=== PATIENT | male | born 1935 | race Caucasian/White ===

== ENCOUNTER 2017-09-29 14:15 | Emergency (ER) | payer MEDICARE, MEDICAID ==
[~2017-09-29] VITALS: Ht 175.3 cm; Wt 68.0 kg
[~2017-09-29 14:15] MED LIST: AMIN30LI25 PO; ASCO500T9 PO; BLOO-140 IN; BUPR100T7 PO; CALC-261 PO; DOCU-275 PO; INSU100V3 SQ; LAMO25TA5 PO; MIRT30TA7 PO; MULT-24 PO; OLAN5TAB3 PO
--- NOTE | 2017-09-29 14:20 | NUR ---
URINARY RETENTION X 1 WEEK, NAD NOTED, VSS, RESP EVEN AND UNLABORED, WAITING FOR MD FLOYD.
[2017-09-29] MEDS: IV NS 0.9% 1,000 ML BAG IV ONE (15:00)
[2017-09-29] MEDS: LORAZEPAM INJ 2 MG/ML VIAL IV ONE ×2 (15:00→15:40)
[2017-09-29] MEDS ORDERED: TAMSULOSIN 0.4 MG CAP.SR.24H ONE (15:08)
[2017-09-29] MEDS ORDERED: ONDANSETRON HCL/PF 4 MG/2 ML VIAL ONE (15:08)
[2017-09-29] MEDS ORDERED: LORAZEPAM INJ 2 MG/ML VIAL ONE ×2 (15:09→15:42)
[2017-09-29 15:11] LABS: BASOPHILS # (AUTO) 0.2 /CMM (0.0-0.2); BASOPHILS % (AUTO) 1.7 % (0.0-2.0); EOSINOPHILS # (AUTO) 0.1 /CMM (0.0-0.7); EOSINOPHILS % (AUTO) 0.8 % (0.0-6.0); HEMATOCRIT 50 % (39-51); HEMOGLOBIN 16.8 g/dL (13.5-17.5); LYMPHOCYTES # (AUTO) 1.1 /CMM (0.8-4.8); LYMPHOCYTES % (AUTO) 12.1 % (20.0-44.0); MEAN CORPUSCULAR HEMOGLOBIN 32 PG (26.0-33.0); MEAN CORPUSCULAR HGB CONC 34 g/dl (31.0-36.0); MEAN CORPUSCULAR VOLUME 93 fL (80-96); MONOCYTES # (AUTO) 0.6 /CMM (0.1-1.30); MONOCYTES % (AUTO) 6.5 % (2.0-12.0); NEUTROPHILS # (AUTO) 7.2 /CMM (1.8-8.9); NEUTROPHILS % (AUTO) 78.9 % (43.0-81.0); PLATELET COUNT (AUTO) 238 /CMM (150-450); RDW COEFFICIENT OF VARIATION 13.7 (11.5-15.0); RED BLOOD CELL COUNT(AUTO) 5.32 MIL/uL (4.5-6.0); WHITE BLOOD COUNT (AUTO) 9.2 K/uL (4.3-11.0)
[2017-09-29] MEDS: TAMSULOSIN 0.4 MG CAP.SR.24H PO ONE (15:13)
[2017-09-29] MEDS: ONDANSETRON HCL/PF 4 MG/2 ML VIAL IVP ONE (15:13)
[2017-09-29 15:22] LABS: CALCIUM, SERUM 9.2 mg/dL (8.5-10.1); CARBON DIOXIDE 24 mmol/L (21-32); CHLORIDE 103 mmol/L (98-107); CREATININE 1.5 mg/dL (0.6-1.3); GLUCOSE 108 mg/dL (74-106); POTASSIUM 4.4 mmol/L (3.5-5.1); SODIUM SERUM 139 mmol/L (136-145); UREA NITROGEN, BLOOD 17 mg/dL (7-18)
[2017-09-29 15:24] LABS: INR 0.95 (0.85-1.15)
--- NOTE | 2017-09-29 15:25 | NUR ---
URINE SENT TO LAB
[2017-09-29 15:27] LABS: ALANINE AMINOTRANSFERASE 21 U/L (12-78); ALKALINE PHOSPHATASE 114 U/L (46-116); ASPARTATE AMINOTRANSFERASE 22 U/L (15-37); BILIRUBIN,DIRECT 0.3 mg/dL (0.0-0.2); BILIRUBIN,TOTAL 1.3 mg/dL (0.2-1.0); LIPASE 105 U/L (73-393); TOTAL PROTEIN, SERUM 7.8 g/dL (6.4-8.2)
[2017-09-29 15:28] LABS: APPEARANCE,URINE Clear (CLEAR); BILIRUBIN,URINE SMALL (NEGATIVE); BLOOD, URINE Negative Ery/uL (NEGATIVE); COLOR,URINE Yellow (YELLOW); KETONES,URINE 15 (NEGATIVE); LEUKOCYTE ESTERASE ,URINE Negative (NEGATIVE); NITRITE, URINE Negative (NEGATIVE); PROTEIN,URINE Trace mg/dl (NEGATIVE); UGLUCOSE Negative (NEGATIVE)
[2017-09-29 15:34] LABS: BACTERIA,URINE None seen /HPF (None Seen); MUCUS,URINE Few /LPF (None Seen); SQUAMOUS EPITHELIAL CELL,UR Few /HPF (None Seen)
[2017-09-29] MEDS ORDERED: IOHEXOL-300 100 ML VIAL IV ONE (15:45)
--- NOTE | 2017-09-29 15:49 | NUR ---
PT TO CTSCAN
[2017-09-29 17:53] VITALS: BP 112/80
--- NOTE | 2017-09-29 17:53 | NUR ---
Patient discharged to home in stable condition. Written and verbal after care instructions given. Patient verbalizes understanding of instruction. Prescriptions given.
--- NOTE | 2017-09-29 17:54 | NUR ---
Sonia hernandez in [facility] - 09/29/17 at 1754 by YEHUDA Patient discharged to home in stable condition. Written and verbal after care instructions given. Patient verbalizes understanding of instruction.
--- NOTE | 2017-09-29 17:54 | NUR ---
IV removed. Catheter intact and site benign. Pressure and 4x4 applied to site. No bleeding noted.
== END 2017-09-29 17:54 | disposition home or self-care (01) ==
LOC: ER 14:19
DX: N40.1 Benign prostatic hyperplasia with lower urinary tract symptoms (principal); R33.8 Other retention of urine
CPT/HCPCS: 36415; 80048-TC; 80076-TC; 81000-TC; 83690-TC; 84484-TC; 85025-TC; 85730-TC; 87086-TC; A4606; J2060; J2405; J7030; Q9967; Z7610

== ENCOUNTER 2018-07-22 19:45 | Emergency (ER) | payer MEDICARE, MEDICAID ==
[~2018-07-22] VITALS: Ht 175.3 cm; Wt 63.5 kg
--- NOTE | 2018-07-22 20:17 | NUR ---
PT BIBSELF COMPLAINING OF LOWER ABDOMINAL PAIN. PT STATES LAST BM WAS 6 DAYS AGO. PT ALSO STATES HE HAS BEEN UNABLE TO URINATE SINCE LAST NIGHT. PT DENIES N/V/D. PT IS AAOX4. RESPIRATIONS EVEN AND UNLABORED. SKIN WARM AND INTACT. NO ACUTE DISTRESS NOTED. PT ABLE TO AMBULATE, STEADY GAIT. WAITING MD EVALUATION.
[2018-07-22] MEDS ORDERED: LACTULOSE 10 G/15 ML UDC (PYXIS) ONE (20:41)
[2018-07-22] MEDS ORDERED: LIDOCAINE 2% JEL UROJET 10 ML MM ONE ×2 (20:41→21:00)
[2018-07-22] MEDS ORDERED: LACTULOSE 10 G/15 ML UDC (PYXIS) PO ONE (21:00)
[2018-07-22 21:27] LABS: APPEARANCE,URINE CLEAR (CLEAR); BILIRUBIN,URINE NEGATIVE (NEGATIVE); BLOOD, URINE NEGATIVE Ery/uL (NEGATIVE); COLOR,URINE YELLOW (YELLOW); KETONES,URINE TRACE (NEGATIVE); LEUKOCYTE ESTERASE ,URINE NEGATIVE (NEGATIVE); NITRITE, URINE NEGATIVE (NEGATIVE); PH,URINE 6.5 (5.0-8.0); PROTEIN,URINE NEGATIVE (NEGATIVE); UGLUCOSE NEGATIVE (NEGATIVE); UROBILINOGEN,URINE 0.2 EU/dL (0.2)
--- NOTE | 2018-07-22 21:55 | NUR ---
Patient discharged to home in stable condition. Written and verbal after care instructions given. Patient verbalizes understanding of instruction. Pt ambulatory with a steady gait. Pt discharged with abraham cath leg bag. Informed pt to follow up with PMD or urologist on Wednesday per MD advice
[2018-07-22 21:56] VITALS: BP 138/72
== END 2018-07-22 21:57 | disposition home or self-care (01) ==
LOC: ER 19:48
DX: K59.00 Constipation, unspecified (principal); R33.9 Retention of urine, unspecified; F41.9 Anxiety disorder, unspecified; F32.9 Major depressive disorder, single episode, unspecified; Z79.4 Long term (current) use of insulin
CPT/HCPCS: 51702; 81001; 99284; A4606; J3490; 81000-TC; Z7610

== ENCOUNTER 2018-07-25 14:18 | Emergency (ER) | payer MEDICARE, MEDICAID ==
[~2018-07-25] VITALS: Ht 175.3 cm; Wt 56.7 kg
[2018-07-25 14:18] VITALS: BP 118/57
--- NOTE | 2018-07-25 15:01 | NUR ---
initial contact with pt , no acute distress, family member at bedside
--- NOTE | 2018-07-25 15:05 | NUR ---
seen and eval by Dr siddiqi, abraham catheter d/nate as ordered, explained and procedure tolerated well
== END 2018-07-25 14:45 | disposition home or self-care (01) ==
LOC: ER 14:24
DX: Z46.6 Encounter for fitting and adjustment of urinary device (principal); R33.9 Retention of urine, unspecified; F32.9 Major depressive disorder, single episode, unspecified; F41.9 Anxiety disorder, unspecified; Z79.4 Long term (current) use of insulin
CPT/HCPCS: 99283; A4606; Z7610

== ENCOUNTER 2018-07-27 13:33 | Emergency (ER) | payer MEDICARE, MEDICAID ==
[~2018-07-27] VITALS: Ht 167.6 cm; Wt 58.5 kg
--- NOTE | 2018-07-27 13:49 | NUR ---
PT BIB FROM HOME C/O URINARY RETENSION, LAST URINE 1 DAY AGO +ABD DISTENTION, AAX04, RESPIRATIONS EVEN AND UNLABORED, NAD NOTED, VSS, AWAITING MD FLOYD
[2018-07-27 14:07] LABS: BASOPHILS % (AUTO) 0.4 % (0.0-2.0); EOSINOPHILS % (AUTO) 0.2 % (0.0-6.0); HEMATOCRIT 42 % (39-51); HEMOGLOBIN 14.1 g/dL (13.5-17.5); LYMPHOCYTES # (AUTO) 0.8 /CMM (0.8-4.8); LYMPHOCYTES % (AUTO) 8.7 % (20.0-44.0); MEAN CORPUSCULAR HGB CONC 34 g/dl (31.0-36.0); MEAN CORPUSCULAR VOLUME 97 fL (80-96); MONOCYTES # (AUTO) 0.6 /CMM (0.1-1.30); MONOCYTES % (AUTO) 6.7 % (2.0-12.0); NEUTROPHILS # (AUTO) 8.1 /CMM (1.8-8.9); PLATELET COUNT (AUTO) 249 /CMM (150-450); RED BLOOD CELL COUNT(AUTO) 4.34 MIL/uL (4.5-6.0); WHITE BLOOD COUNT (AUTO) 9.6 K/uL (4.3-11.0)
--- NOTE | 2018-07-27 14:13 | NUR ---
F/C INSERTED ORDERED, URINE COLLECTED AND SENT TO LAB
[2018-07-27 14:14] LABS: CALCIUM, SERUM 9.3 mg/dL (8.5-10.1); CARBON DIOXIDE 26 mmol/L (21-32); CHLORIDE 102 mmol/L (98-107); CREATININE 1.5 mg/dL (0.6-1.3); GLUCOSE 127 mg/dL (74-106); POTASSIUM 4.5 mmol/L (3.5-5.1); SODIUM SERUM 138 mmol/L (136-145); UREA NITROGEN, BLOOD 27 mg/dL (7-18)
[2018-07-27 14:26] LABS: APPEARANCE,URINE Slightly Cloudy (CLEAR); BILIRUBIN,URINE Negative (NEGATIVE); BLOOD, URINE Large Ery/uL (NEGATIVE); COLOR,URINE Dark Yellow (YELLOW); KETONES,URINE Trace (NEGATIVE); LEUKOCYTE ESTERASE ,URINE Negative (NEGATIVE); NITRITE, URINE Negative (NEGATIVE); PH,URINE 6.5 (5.0-8.0); PROTEIN,URINE Negative (NEGATIVE); UGLUCOSE Negative (NEGATIVE); UROBILINOGEN,URINE 0.2 EU/dL (0.2)
[2018-07-27 14:38] LABS: BACTERIA,URINE None seen /HPF (None Seen); RBC,URINE 80-100 /HPF (0-2); SQUAMOUS EPITHELIAL CELL,UR Few /HPF (None Seen)
[2018-07-27 14:50] VITALS: BP 109/82
--- NOTE | 2018-07-27 15:06 | NUR ---
PER DR NORRIS, TO CHANGE URINARY DRAINAGE BAG TO A LEG BAG.
--- NOTE | 2018-07-27 15:28 | NUR ---
Patient discharged to home in stable condition. Written and verbal after care instructions given. Patient verbalizes understanding of instruction. Pt d/c home with f/c with leg bag
== END 2018-07-27 15:30 | disposition home or self-care (01) ==
LOC: ER 13:36
DX: R33.9 Retention of urine, unspecified (principal); G89.29 Other chronic pain; K59.00 Constipation, unspecified; F32.9 Major depressive disorder, single episode, unspecified; F41.9 Anxiety disorder, unspecified; Z79.4 Long term (current) use of insulin
CPT/HCPCS: 36415; 80048-TC; 81000-TC; 85025-TC; 87086-TC; A4606; Z7610

== ENCOUNTER 2018-08-09 18:37 | Emergency (ER) | payer MEDICARE, MEDICAID ==
[~2018-08-09] VITALS: Ht 175.3 cm; Wt 56.7 kg
--- NOTE | 2018-08-09 18:44 | NUR ---
PT BIB CAREGIVER FROM HOME, C/O HEMATURIA AND PAIN ON AND OFF X 1 WEEK, F/C PLACED HERE LAST WEEK, PER PT HAS SEEN UROLOGIST LAST WEEK. PT AAOX4, RESPIRATIONS EVEN AND UNLABORED, NO SOB, NAD NOTED, VSS, PENDING ER PROVIDER EVAL
[2018-08-09] MEDS ORDERED: HYDROCODONE/APAP 5/325MG 1 EACH TABLET PO ONE (19:00)
[2018-08-09] MEDS ORDERED: LIDOCAINE 2% JEL UROJET 10 ML MM ONE ×2 (19:00→19:01)
[2018-08-09] MEDS ORDERED: HYDROCODONE/APAP 5/325MG 1 EACH TABLET ONE (19:01)
[2018-08-09 19:14] LABS: BASOPHILS # (AUTO) 0.1 /CMM (0.0-0.2); BASOPHILS % (AUTO) 0.6 % (0.0-2.0); EOSINOPHILS % (AUTO) 0.9 % (0.0-6.0); HEMATOCRIT 43 % (39-51); HEMOGLOBIN 14.3 g/dL (13.5-17.5); LYMPHOCYTES # (AUTO) 1.1 /CMM (0.8-4.8); LYMPHOCYTES % (AUTO) 9.4 % (20.0-44.0); MEAN CORPUSCULAR HGB CONC 33 g/dl (31.0-36.0); MEAN CORPUSCULAR VOLUME 97 fL (80-96); MONOCYTES # (AUTO) 0.9 /CMM (0.1-1.30); MONOCYTES % (AUTO) 7.7 % (2.0-12.0); NEUTROPHILS # (AUTO) 9.5 /CMM (1.8-8.9); NEUTROPHILS % (AUTO) 81.4 % (43.0-81.0); PLATELET COUNT (AUTO) 315 /CMM (150-450); RED BLOOD CELL COUNT(AUTO) 4.46 MIL/uL (4.5-6.0); WHITE BLOOD COUNT (AUTO) 11.7 K/uL (4.3-11.0)
[2018-08-09 19:24] LABS: CALCIUM, SERUM 8.7 mg/dL (8.5-10.1); CARBON DIOXIDE 30 mmol/L (21-32); CHLORIDE 104 mmol/L (98-107); CREATININE 1.2 mg/dL (0.6-1.3); GLUCOSE 97 mg/dL (74-106); POTASSIUM 4.6 mmol/L (3.5-5.1); SODIUM SERUM 140 mmol/L (136-145); UREA NITROGEN, BLOOD 22 mg/dL (7-18)
--- NOTE | 2018-08-09 20:18 | NUR ---
DASILVA CATH CHANGED, DRAINING BLOODY RED URINE AT THIS TIME, DENIES ANY PAIN OR DISCOMFORT.
[2018-08-09] MEDS ORDERED: IV NS 0.9% 1,000 ML BAG IV ONE (20:30)
--- NOTE | 2018-08-09 21:15 | NUR ---
URINE COLLECTED AND SENT TO LAB
[2018-08-09 21:32] LABS: APPEARANCE,URINE CLOUDY (CLEAR); BILIRUBIN,URINE NEGATIVE (NEGATIVE); BLOOD, URINE 3+ Ery/uL (NEGATIVE); COLOR,URINE RED (YELLOW); KETONES,URINE TRACE (NEGATIVE); LEUKOCYTE ESTERASE ,URINE 1+ (NEGATIVE); NITRITE, URINE NEGATIVE (NEGATIVE); PROTEIN,URINE 3+ mg/dl (NEGATIVE); UGLUCOSE NEGATIVE (NEGATIVE)
[2018-08-09 21:34] LABS: BACTERIA,URINE Rare /HPF (None Seen); RBC,URINE TOO NUMEROUS TO COUN /HPF (0-2); SQUAMOUS EPITHELIAL CELL,UR Rare /HPF (None Seen)
--- NOTE | 2018-08-09 21:55 | NUR ---
Patient discharged to home in stable condition. Written and verbal after care instructions given. Patient verbalizes understanding of instruction. IV removed. Catheter intact and site benign. Pressure and 4x4 applied to site. No bleeding noted.
[2018-08-09 21:56] VITALS: BP 122/60
== END 2018-08-09 21:57 | disposition home or self-care (01) ==
LOC: ER 18:45
DX: N40.1 Benign prostatic hyperplasia with lower urinary tract symptoms (principal); R33.8 Other retention of urine; R31.9 Hematuria, unspecified; E86.0 Dehydration; F32.9 Major depressive disorder, single episode, unspecified; F41.9 Anxiety disorder, unspecified; Z79.4 Long term (current) use of insulin
CPT/HCPCS: 36415; 80048-TC; 81000-TC; 85025-TC; 87086-TC; J3490; J7030

== ENCOUNTER 2019-09-01 14:03 | Inpatient (IN) | payer MEDICARE, OTHER ==
[~2019-09-01] VITALS: Ht 175.3 cm; Wt 54.4 kg
--- NOTE | 2019-09-01 14:25 | NUR ---
PT BROUGHT INTO EMERGENCY ROOM FOR MENTAL EVALUATION ACCORDING TO CHILD CAREGIVER PT TALKS TO SELF AND HAS NOT SLEPT. WILL CONTINUE TO MONITOR.
[2019-09-01 14:41] LABS: BASOPHILS # (AUTO) 0.1 /CMM (0.0-0.2); EOSINOPHILS % (AUTO) 1.3 % (0.0-6.0); HEMATOCRIT 42 % (39-51); HEMOGLOBIN 13.9 g/dL (13.5-17.5); LYMPHOCYTES # (AUTO) 1.3 /CMM (0.8-4.8); LYMPHOCYTES % (AUTO) 22.9 % (20.0-44.0); MEAN CORPUSCULAR HGB CONC 33 g/dl (31.0-36.0); MEAN CORPUSCULAR VOLUME 96 fL (80-96); MONOCYTES # (AUTO) 0.5 /CMM (0.1-1.30); MONOCYTES % (AUTO) 8.4 % (2.0-12.0); NEUTROPHILS # (AUTO) 3.7 /CMM (1.8-8.9); NEUTROPHILS % (AUTO) 66.4 % (43.0-81.0); PLATELET COUNT (AUTO) 234 /CMM (150-450); RED BLOOD CELL COUNT(AUTO) 4.37 MIL/uL (4.5-6.0); WHITE BLOOD COUNT (AUTO) 5.6 K/uL (4.3-11.0)
[2019-09-01 14:48] LABS: CALCIUM, SERUM 9.4 mg/dL (8.5-10.1); CARBON DIOXIDE 32 mmol/L (21-32); CHLORIDE 105 mmol/L (98-107); CREATININE 1.2 mg/dL (0.6-1.3); GLUCOSE 115 mg/dL (74-106); POTASSIUM 5.1 mmol/L (3.5-5.1); SODIUM SERUM 142 mmol/L (136-145); UREA NITROGEN, BLOOD 22 mg/dL (7-18)
[2019-09-01 14:54] LABS: ALANINE AMINOTRANSFERASE 21 U/L (12-78); ALBUMIN 3.5 g/dL (3.4-5.0); ALCOHOL, BLOOD < 3 mg/dL (0-0); ALKALINE PHOSPHATASE 82 U/L (46-116); ASPARTATE AMINOTRANSFERASE 19 U/L (15-37); BILIRUBIN,DIRECT 0.2 mg/dL (0.0-0.2); BILIRUBIN,TOTAL 0.8 mg/dL (0.2-1.0); TOTAL PROTEIN, SERUM 6.6 g/dL (6.4-8.2)
[2019-09-01 14:55] LABS: ACETAMINOPHEN < 2 ug/ml (10-30); SALICYLATE < 3.0 mg/dL (2.8-20.0)
--- NOTE | 2019-09-01 15:14 | NUR ---
metal washing machine operator art called for evaluation
--- NOTE | 2019-09-01 15:34 | NUR ---
CALLED FOR GPS BED
--- NOTE | 2019-09-01 15:39 | NUR ---
PET EVALUATION TEAM PRESENT
[2019-09-01] MEDS ORDERED: MIRT30TA PO (15:51)
[2019-09-01] MEDS ORDERED: OLAN2.5T3 PO (15:51)
--- NOTE | 2019-09-01 15:58 | NUR ---
LABS DONE URINE SENT FOR PROCESSING
[2019-09-01 16:15] LABS: APPEARANCE,URINE Clear (CLEAR); BILIRUBIN,URINE Negative (NEGATIVE); BLOOD, URINE Negative Ery/uL (NEGATIVE); COLOR,URINE Yellow (YELLOW); KETONES,URINE Negative (NEGATIVE); LEUKOCYTE ESTERASE ,URINE Negative (NEGATIVE); NITRITE, URINE Negative (NEGATIVE); PROTEIN,URINE Negative (NEGATIVE); UGLUCOSE Negative (NEGATIVE); UROBILINOGEN,URINE 0.2 EU/dL (0.2)
--- NOTE | 2019-09-01 16:39 | NUR ---
PT PLACED ON 5150 AFTER PET EVALUATION PENDING PLACEMENT IN GPS
--- NOTE | 2019-09-01 17:56 | NUR ---
RECIEVED BED 216
[2019-09-01 20:05] VITALS: BP 106/59
[2019-09-01 20:50] VITALS: BP 125/70
[2019-09-01] MEDS ORDERED: MAGNESIUM HYDROXIDE 30 ML UDC PO PRN (21:00)
[2019-09-01] MEDS ORDERED: ACETAMINOPHEN 325 MG TABLET PO PRN (21:00)
[2019-09-01] MEDS ORDERED: MAG HYDROX/AL HYDROX/SIMETH 30 ML UDC PO PRN (21:00)
[2019-09-01] MEDS ORDERED: ZOLPIDEM TARTRATE 5 MG TABLET PO PRN (21:00)
[2019-09-01] MEDS ORDERED: LORAZEPAM 0.5 MG TABLET PO PRN (21:00)
[2019-09-01] MEDS ORDERED: BLOOD SUGAR DIAGNOSTIC 1 EACH STRIP IN ONE (22:00)
[2019-09-01] MEDS ORDERED: TAMS-12 PO (22:16)
[2019-09-01] MEDS ORDERED: FINA5TAB11 PO (22:16)
--- NOTE | 2019-09-01 22:31 | NUR ---
RN NOTES : PT. REFUSED INTIALLY BLOOD SUGAR CHECK ,ENCOURAGED X 3 STILL REFUSED, EXPLINED RISKS AND BENEFITS STILL REFUSED,PT. STATED I AM NOT DIABETIC , I FEEL TIRED/ SLEEPING, WILL CONTINUITY WITH CARE.
--- NOTE | 2019-09-01 23:45 | NUR ---
ADMISSION NOTES: ADMITTED THIS 84Y/O MALE PATIENT ADMIT FROM [facility] ,ER / INTIALLY FROM HOME, ADMITTED TO GPS ON 5150 HOLD, PER HOLD GRAVELY DISABLE, DUE TO DEPRESSED NOT SLEEPING, NON COMPLIANT WITH CARE , NOT EATING AND TALKING TO HIMSELF ALL NIGHT FOR THE PAST TWO WEEKS, UPON FACE TO FACE ASSESSMENT PATIENT IS A&O X1,2 , DEPRESSED FLAT AFFECT, ,DISORGNIZED, UNCOOPERTIVE ,EASILY GETS AGITATED, DENIES SI /HI AT THIS TIME, PT. IS POOR HISTORIAN, POOR INSIGHT ,POOR JUDGEMENT , PT. REFUSED TO SIGNS ADMISSION CONSENT PAPERS , DUE TO MENTAL STATUS DEPRESSED, AND PT. REFUSED TO TAKING PICTURES FOR THE CHART, PT. REFUSED INTITAALY BLOOD SUGAR CHECK , ENCOURAGED, EXPLAINED RISKS AND BENEFITS STILL REFUSED, PER PT. I DONT WANTS CHECK , BOTH MD AWARE AND NOTIFIED OF THE ADMISSION, BELONGINGS CONTRABAND WERE DONE , PT. REFUSED FULL BODY SKIN ASSESSMENT AND PICTURES TO BE TAKEN, ENCOURAGED X3 EXPLINED RISKS AND BENEFITS , STILL REUSED, NURSING ASSESSMENT DONE ,PT. RIGHTS DISCUSS BY CAST IRON DRAIN PIPE LAYER , PROVIDE THE PT. WITH HANDBOOK, AND MEDICATIONS GUIDE, ENVIRONMENTAL SAFETY CHECK DONE, ENCOURAGED PT. VERBALIZED ANY FEELING CONCERN TO STAFF, ORIENT TO UNIT POLICY, NO ACUTE DISTRESS NOTED,VITAL SIGNS WNL ,DENIES ANY PAIN AT THIS TIME,WILL CONTINUE TO MONITOR FOR Q15 SAFETY AND BEHAVIOR.
--- NOTE | 2019-09-02 00:01 | NUR ---
RN NOTES : PT. IS UNABLE TO PROVIDE MEDICAL HISTORY AND LIST OF MEDICATIONS, NOTED FROM PREVIOUS MEDICAL HISTORY AND [facility] ER RECORDS.
[2019-09-02] MEDS ORDERED: Z GUARD REMEDY 2 OZ OINT TP PRN (05:00)
--- NOTE | 2019-09-02 06:42 | NUR ---
RN NOTES: PT. REFUSED FULL BODY SKIN ASSESSMENT , AND PICTURES TO BE TAKEN ,PER PT. PT. MY SKIN IS FINE , ENCOURAGED X3 EXPLINED RISKS AND BENEFITS STILL RFUSED, VISUALLY NOTED SKIN DRYNESS , WOUND CONSULTS ORDERS, WILL CONTINUIYT WITH CARE
--- NOTE | 2019-09-02 06:48 | NUR ---
RN NOTES: PLACED CALLED MICHAEL NICHOLAS AND NOTIFED OF ADMISSION #
[2019-09-02 08:00] VITALS: BP 118/71
[2019-09-02] MEDS ORDERED: ENSURE ENLIVE CHOC 237 ML CAN PO SCH (08:00)
[2019-09-02] MEDS: Z GUARD REMEDY 2 OZ OINT TP SCH (08:23)
[2019-09-02] MEDS: ENSURE ENLIVE CHOC 237 ML CAN PO SCH ×2 (12:36→17:00)
[2019-09-02 16:00] VITALS: BP 120/61
--- NOTE | 2019-09-02 18:54 | NUR ---
NOTIFIED DR GILLESPIE TO RECONCILE MEDICATIONS
--- NOTE | 2019-09-02 19:30 | NUR ---
GPS RN NOTE, RECEIVED PATIENT AWAKE AND IN BED, NO S/S OR COMPLAINTS OF PAIN AT THIS TIME. PATIENT IS DISPLAYING NO S/S OF APPARENT DISTRESS AT THIS TIME. PATIENT BREATHING IS UNLABORED WITH EQUAL RISE AND FALL OF THE CHEST. PATIENT IS ALERT AND ORIENTED X 2 ON ROOM AIR WITH A SPO2 95%. PATIENT IS MED COMPLIANT, PARANOID, DISORGANIZED, DEPRESSED, AND COOPERATIVE. PATIENT DENIES SUICIDAL AND HOMICIDAL IDEATIONS AT THIS TIME. PATIENT ASSISTED WITH TURNING AND REPOSITIONING Q2HR AND PRN FOR COMFORT AND CIRCULATION. PATIENT HAS NO NEEDS AT THIS TIME. PATIENT EDUCATED ON THE USE OF THE CALL SMILEY. PATIENT BED SIDE RAILS UP X 2 FOR SAFETY. PATIENT BED IS LOCKED, LOW, WITH BED ALARM ON. WILL CONTINUE TO MONITOR THIS PATIENT Q15 MINUTES WITH THE HELP OF STAFF TO MAINTAIN SAFETY.
[2019-09-02 20:15] VITALS: BP 97/55
[2019-09-02] MEDS: QUETIAPINE FUMARATE 25 MG TABLET PO SCH (21:54)
[2019-09-03 07:36] LABS: BASOPHILS # (AUTO) 0.1 /CMM (0.0-0.2); BASOPHILS % (AUTO) 1.2 % (0.0-2.0); EOSINOPHILS % (AUTO) 3.9 % (0.0-6.0); HEMATOCRIT 38 % (39-51); HEMOGLOBIN 12.8 g/dL (13.5-17.5); LYMPHOCYTES # (AUTO) 2.3 /CMM (0.8-4.8); LYMPHOCYTES % (AUTO) 33.2 % (20.0-44.0); MEAN CORPUSCULAR HGB CONC 34 g/dl (31.0-36.0); MEAN CORPUSCULAR VOLUME 96 fL (80-96); MONOCYTES # (AUTO) 0.6 /CMM (0.1-1.30); MONOCYTES % (AUTO) 8.9 % (2.0-12.0); NEUTROPHILS # (AUTO) 3.6 /CMM (1.8-8.9); NEUTROPHILS % (AUTO) 52.8 % (43.0-81.0); PLATELET COUNT (AUTO) 206 /CMM (150-450); RED BLOOD CELL COUNT(AUTO) 3.91 MIL/uL (4.5-6.0); WHITE BLOOD COUNT (AUTO) 6.8 K/uL (4.3-11.0)
[2019-09-03 07:54] LABS: CALCIUM, SERUM 8.6 mg/dL (8.5-10.1); POTASSIUM 3.8 mmol/L (3.5-5.1)
[2019-09-03 08:00] VITALS: BP 107/50
[2019-09-03] MEDS: ENSURE ENLIVE CHOC 237 ML CAN PO SCH ×3 (08:00→16:42)
[2019-09-03] MEDS: buPROPion SR 100 MG TABLET.ER PO SCH (09:06)
[2019-09-03] MEDS: Z GUARD REMEDY 2 OZ OINT TP SCH (09:06)
[2019-09-03] MEDS: FINASTERIDE (5 MG) 5 MG TABLET PO SCH ×2 (13:00→13:29)
--- NOTE | 2019-09-03 13:33 | NUR ---
RN NOTE- PT REFUSING PROSCAR. PT FAMILY AT BEDSIDE STATING HE DOESN'T NEED RX. JUST NEEDS TO DRINK MORE WATER.
--- NOTE | 2019-09-03 14:12 | NUR ---
RN NOTE- SPOKE W ROB GILLESPIE. PROSCAR AND FLOMAX DC AT THIS TIME
[2019-09-03 16:00] VITALS: BP 103/54
[2019-09-03 20:55] VITALS: BP 109/66
--- NOTE | 2019-09-03 21:50 | NUR ---
RN NOTES :PT. REFUSED WEEKLY FULL BODY SKIN REASSESSMENT , VISUALLY BODY PART NOTED SKIN DRYNESS,REDNESS AND /SACRAL REDNESS,ENCOURAGED X3 RISKS AND BENEFITS EXPLINED BUT PT. STRONGLY REFUSED SKIN ASSESSMENT AND PICTURE TO BETAKEN. PER PT. STATED MY SKIN IS FINE. WILL CONTINUITY WITH CARE.
[2019-09-03] MEDS ORDERED: TAMSULOSIN 0.4 MG CAP.SR.24H PO SCH (22:00)
[2019-09-03] MEDS: QUETIAPINE FUMARATE 25 MG TABLET PO SCH (22:22)
--- NOTE | 2019-09-04 05:56 | NUR ---
RN NOTES : PT. REFUSED TO APPLIED SKIN PROTECTER / REMEDY Z-GUARD, ENCOURAGED STILL REFUSED.
[2019-09-04 08:00] VITALS: BP 132/55
[2019-09-04] MEDS: ENSURE ENLIVE CHOC 237 ML CAN PO SCH ×3 (08:47→16:23)
[2019-09-04] MEDS: Z GUARD REMEDY 2 OZ OINT TP SCH (08:47)
[2019-09-04] MEDS: buPROPion SR 100 MG TABLET.ER PO SCH (08:47)
--- NOTE | 2019-09-04 11:02 | NUR ---
WOUND CARE CONSULT: PT REFUSED SKIN ASSESSMENT. PT IS AMBULATORY AND CONTINENT WITH CURRENT LAMAR SCORE OF 20 PER NURSING STAFF. WILL SEE PRN.
--- NOTE | 2019-09-04 13:03 | NUR ---
Manager Trading contact: SW called the pts livestock trucker, Sharmila ([phone]), and left a message on her voicemail stating that the SW would like to speak to her regarding pts initial discharge plan and treatment plan.
--- NOTE | 2019-09-04 13:52 | NUR ---
Initial Discharge Plan: Pt resides at his home but the address is unknown at this time. Pt lives with his mopper, Sharmila ([phone]), who will be involved in his treatment. SW will work with the pt and the MD regarding appropriate discharge planning. SW will form a safe and proper discharge.
--- NOTE | 2019-09-04 15:40 | NUR ---
Group Note: SW encouraged pt to participate in group on 09/04/19 at 2pm discussing discharge planning. Pt appeared to be isolating in his room and not engaging with his environment. Pt refused to attend group and stated that he understands that he is going to be discharged back to his home with his press clipper once he is stable. SW stated that he needs to show improved appetite and be compliant with his medications.
[2019-09-04 16:00] VITALS: BP 118/64
[2019-09-04 20:32] VITALS: BP 105/62
[2019-09-04] MEDS: QUETIAPINE FUMARATE 25 MG TABLET PO SCH (21:23)
[2019-09-05 08:00] VITALS: BP_SYST 104; BP_SYST 132; BP_DIAS 56; BP_DIAS 76
[2019-09-05] MEDS: ARIPIPRAZOLE 5 MG TABLET PO SCH (08:13)
[2019-09-05] MEDS: ENSURE ENLIVE CHOC 237 ML CAN PO SCH ×3 (08:13→17:27)
[2019-09-05] MEDS: Z GUARD REMEDY 2 OZ OINT TP SCH (08:14)
--- NOTE | 2019-09-05 15:17 | NUR ---
Planer Chain Offbearer contact: SW called the pts film booker, Sharmila ([phone]), and received the pts address which is [address] [place], [place]. SW stated that the pt will be here a few more days and then the SW will call her when the pt is ready to be discharged.
[2019-09-05 16:00] VITALS: BP 105/55
--- NOTE | 2019-09-05 16:04 | NUR ---
Group Note: SW encouraged pt to participate in group on 09/05/19 at 2pm discussing reality testing. Pt appeared to be isolating in his room and not engaging with his environment. Pt refused to attend group and stated that he understands that he is in the hospital because he needs additional assistance in regards to caring for himself. Pt stated that he does have a web machine tender and that she cares for him so he does not have to do much for himself.
[2019-09-05 20:16] VITALS: BP 99/55
[2019-09-05] MEDS: QUETIAPINE FUMARATE 25 MG TABLET PO SCH (21:31)
[2019-09-06 08:00] VITALS: BP 113/61
[2019-09-06] MEDS: ARIPIPRAZOLE 5 MG TABLET PO SCH (08:38)
[2019-09-06] MEDS: ENSURE ENLIVE CHOC 237 ML CAN PO SCH ×3 (08:38→17:56)
[2019-09-06] MEDS: Z GUARD REMEDY 2 OZ OINT TP SCH (08:43)
--- NOTE | 2019-09-06 13:47 | NUR ---
Wire Roller contact: SW called the pts lumber handler, Sharmila ([phone]), and left a voicemail stating that the pt is going to be discharged the following day. AKSHAT asked for a call back to arrange the details of the discharge.
[2019-09-06 16:00] VITALS: BP 117/63
--- NOTE | 2019-09-06 19:00 | NUR ---
GPS RN NOTE: REQUESTING THAT THE PATIENT NEEDS TO BE MOVED TO THE DIFFERENT ROOM BECAUSE PER , THE ROOM MATE IS A BAD INFLUENCE, ROOMMATE IS CONFUSED, FILTHY AND URINATES ON THE FLOOR. AND WHICH IS NOT A GOOD INFLUENCE FOR THE PATIENT. EXPLAINED TO THE THAT WE ARE GONNA HAVE THE OTHER ROOM CLEANED FIRST BEFORE THE TRANSFER. Addendum: 09/07/19 at 2277 by DAKOTAH HANNA II, RN ADDENDUM: THE REFERRED TO IN THE ABOVE NOTES IS APPARENTLY THE CAREGIVER PER DAYSHIFT STAFF
[2019-09-06 20:11] VITALS: BP 92/49
--- NOTE | 2019-09-06 21:20 | NUR ---
GPS RN NOTE: CALLED UPSET ASKING WHY THE PATIENT IS STILL ON THE CHAIR, EXPLAINED TO THE THAT THE PATIENT IS COMFORTABLE SITTING IN THE CHAIR UNLOCKED WHILE WATCHING TV AND WITH THE EDUCATIONAL TECHNOLOGY COORDINATOR SITTING NEXT TO THE PATIENT. STATED THAT ITS CRUEL TO HAVE THE PATIENT TO BE SITTING IN THE CHAIR AND DEMANDED TO MOVED THE PATIENT TO THE ROOM, EXPLAINED TO THE THAT THE EVS JUST FINISHED CLEANING THE NEW ROOM THAT SHE REQUESTED AND AFTER THE HS MEDS IS GIVEN, THE PATIENT IS GONNA BE MOVED TO THE NEW ROOM. CN SPOKE TO THE . SPOKE TO THE PATIENT. PATIENT TOOK HIS HS MEDS AND TRANSFERRED TO THE NEW ROOM. Addendum: 09/07/19 at 0427 by DAKOTAH HANNA II, RN ADDENDUM: THE REFERRED TO IN THE ABOVE NOTES IS APPARENTLY [facility]
[2019-09-06] MEDS: QUETIAPINE FUMARATE 25 MG TABLET PO SCH (21:21)
[2019-09-07 08:00] VITALS: BP 105/55
--- NOTE | 2019-09-07 08:19 | NUR ---
Alterations Tailor contact: SW called the pts gasoline tester, Sharmila ([phone]), and left a voicemail stating that the pt is going to be discharged the following day. AKSHAT asked for a call back to arrange the details of the discharge.
[2019-09-07] MEDS: ENSURE ENLIVE CHOC 237 ML CAN PO SCH ×2 (08:24→12:05)
[2019-09-07] MEDS: Z GUARD REMEDY 2 OZ OINT TP SCH (08:24)
[2019-09-07] MEDS: ARIPIPRAZOLE 5 MG TABLET PO SCH (08:24)
--- NOTE | 2019-09-07 10:38 | NUR ---
Sewer Contractor contact: SW called the pts lock setter, Sharmila ([phone]), and left a voicemail stating that the pt is going to be discharged the following day. AKSHAT asked for a call back to arrange the details of the discharge.
--- NOTE | 2019-09-07 10:49 | NUR ---
Dr. Rollins gave an order to D/C hold and D/C home with Home Health services and to follow up with psych and medical doctors. Pt. without distress, denies suicidal and homicidal. Addendum: 09/07/19 at 1156 by MESERET ALVA RN Belongings ready and discharge papers ready and pt. signed to sign the discharge papers.
--- NOTE | 2019-09-07 11:15 | NUR ---
Package Line Operator contact: Pts high worker, Sharmila ([phone]), called the SW and stated that she would arrive around 2pm to tile picker the pt.
--- NOTE | 2019-09-07 14:01 | NUR ---
Home Health Referral: AKSHAT faxed a home health referral to [facility] with attn to Intake to the fax number: [phone].
--- NOTE | 2019-09-07 14:02 | NUR ---
Ernst Carreon NP made aware of the discharge and reconciled med to continue at home.
--- NOTE | 2019-09-07 14:23 | NUR ---
Discharge Note: Pt was discharged home to [address] [place] [address]; ([phone]). Pt was picked up by his package sealer machine, Juana ([phone]), around 2pm. Upon discharge, the pt appeared to be in a euthymic mood and presented with a calm affect. Pt denied both suicidal and homicidal ideation as well as auditory and visual hallucinations. Pt appeared to be alert and oriented x4. Pt appeared to be well groomed and appropriately dressed. Pt was referred to [facility] for a psychiatric nurse to assist the pt in his home. Pt will continue to be under the care of his psychiatrist, Dr. Fonseca, located at [address], [place] [address]; and his associate product manager, Dr. Deni Brennan, located at [address], [place] [address]; .
--- NOTE | 2019-09-07 14:50 | NUR ---
Pt. left the unit with belongings and was picked by his caregiver Juana. Instructed on meds to continue at home and verbalizes understanding and encouraged to make a follow up with his psychiatrist and medical doctors and agreed. Pt. left the unit via a wheelchair and [facility]. Left without distress and on stable condition. V/S taken: BP 137/94, NM 91, RR 18, temp 97.5 and oxygen sat 99%. Addendum: 09/07/19 at 1720 by MESERET ALVA RN Called Juana the news reporter at [phone] regarding the envelope with the prescriptions and paper works that they left in the room. Per news reporter she will come to apple picker the envelope tomorrow and the pharmacy called the doctor for the prescriptions.
== END 2019-09-07 14:50 | disposition home or self-care (01) | DRG 885 ==
LOC: ER 14:03 → GPS 18:01
PROVIDERS: ADMIT Psychiatry & Neurology Psychiatry; ATTEND Nurse Practitioner Acute Care
DX: F33.3 Major depressive disorder, recurrent, severe with psychotic symptoms (principal); G93.41 Metabolic encephalopathy; F23 Brief psychotic disorder; D63.8 Anemia in other chronic diseases classified elsewhere; F41.9 Anxiety disorder, unspecified; R79.89 Other specified abnormal findings of blood chemistry; N40.1 Benign prostatic hyperplasia with lower urinary tract symptoms; R33.8 Other retention of urine; F03.90 Unspecified dementia, unspecified severity, without behavioral disturbance, psychotic disturbance, mood disturbance, and anxiety
CPT/HCPCS: 36415; 80048-TC; 80061-TC; 80076-TC; 80305; 81000-TC; 85025-TC; 87081-TC; 97116-TC; 97530-TC; G0480